=== PATIENT | female | born 1995 | race African-American/Black ===

== ENCOUNTER 2024-08-03 00:52 | Day surgery (SDC) | payer MEDICAID, SELFPAY ==
[2024-07-29 13:20] VITALS: BMI 43.4
--- NOTE | 2024-07-29 13:21 | PC.NURSE ---
Report to the Outpatient Waiting Room, entrance under the green pavilion located off [facility], at time _0600_ on date _[id number]_. Planned Procedure Time: _0730_.? Time changes happen often and if your time is changed the preop area will call you the afternoon before. - You and your visitor will be asked to self-screen and do not enter if you have any COVID symptoms. Please call surgeon if you need to reschedule. - A mask is optional within the hospital at this time. Patients may have clear liquids (water, carbonated beverages, clear teas, apple juice) until 3 hours prior to surgery with a maximum of 20 ounces. - No food from midnight until time of surgery and no smoking Take only the following medications with a SIP of water on the morning of surgery: __None DO NOT STOP ANY OF YOUR OTHER PRESCRIPTION MEDICATIONS PRIOR TO SURGERY EXCEPT THE FOLLOWING Medications to discontinue per physician __None Date to take last dose Please no make-up, nail mauritanian, hairspray, perfume, deodorant, or body powder the day of surgery.? No jewelry (including any body piercings) or valuables the day of surgery, leave them at home.? Please take a shower or bath the night before, or the morning of, surgery with an antibacterial soap.? Wear comfortable, loose fitting clothing.? - Jewelry must be removed prior to entering the operating room.? Rings and piercings that are not removed may be cut off. - The hospital will not accept responsibility for valuables.? - Please leave all valuables, including medications, at home the day of surgery. If you are going home after surgery, a licensed tractor driver teamster must drive you home.? - NO public transportation without another adult if you receive anesthesia. - We recommend that an adult stay with you for 24 hours following discharge. - We also recommend that you do not drive, make important decision, drink alcoholic beverages, or take any drugs that were not prescribed by your health care provider for at least 24 hours after your discharge time. Follow any additional instructions given to you from your surgeon. Telephone instructions given to __Lauren__and asked if any additional questions and then verbalized understanding. Patient advised to call surgeon office or pre surgery nurse liaison [phone] if any additional questions.
--- NOTE | 2024-08-02 15:49 | WPDANESEPP ---
Anes - Eval Pre Procedure Procedure: Operation Date: 08/03/24 07:30 Proposed Procedures p Suction Dilation and Curettage - Figueroa Ramos MD Date/Time: 08/02/24 15:49 Pre Op Diagnosis: Missed AB Patient Data Age: 29 Gender: F Height: 1.73 m Weight: 129.5 kg Allergies Allergy/AdvReac Type Severity Reaction Status Date / Time codeine Allergy Intermediate Unknown Verified 07/29/24 13:14 Penicillins Allergy Intermediate Hives Verified 07/29/24 13:14 Home Medications Medication Instructions Recorded Confirmed Type No Home Medications 07/29/24 07/29/24 History Patient hx anesthesia problems: none Family hx anesthesia problems: none Results Review: All pre-operative results and documents have been reviewed as part of the pre-operative evaluation. [facility] Past Medical History Medical History Depression no meds Encounter for screening examination for sexually transmitted disease Surgical History Surgical History Delivery by section (01/16/17) primary c/s hip issues History of orthopedic surgery (~03/2013) right hipo shattered screws in place Family History Family History Grandparent Diabetes mellitus maternal grandmother Acute myocardial infarction paternal grandfather Other Heart disease Social History Social History Years smoked: 4 Smoking status: Never smoker Tobacco type: e-cigarettes/vaping Smoking end date: 08/07/22 Alcohol intake: current Alcohol use details: social 4 month Substance use: current Substance use type: marijuana Other substance usage details: social 3 times a month? 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
[2024-08-03] MEDS: ACETAMINOPHEN 500 MG TABLET 1000 MG PO (06:22)
[2024-08-03] MEDS: LACTATED RINGERS 1,000 ML 30 ML IV CONT (06:25)
[2024-08-03] MEDS: DOXYCYCLINE 100 MG/NS 100 ML 100 MG/100 ML BAG IVPB (06:34)
[2024-08-03 06:35] VITALS: BP 132/83; PULSE 92; RESP 16; TEMP 36.1; O2SAT 100
[2024-08-03 07:13] LABS: Hematocrit 36.6 % (37.0-47.0); Hemoglobin 11.8 g/dL (12.0-15.0)
--- NOTE | 2024-08-03 07:15 | WPDANESEPPF ---
Anes - Initial Pre Proc Eval Procedure: Operation Date: 08/03/24 07:30 Proposed Procedures p Suction Dilation and Curettage - Figueroa Ramos MD Date/Time: 08/03/24 07:15 Surgeon: Figueroa Ramos MD Pre Op Diagnosis: Missed AB Patient Data Age: 29 Gender: F Height: 1.73 m Weight: 129 kg Last Vital Signs Temp 36.1 C L 08/03/24 06:35 Pulse 92 08/03/24 06:35 Resp 16 08/03/24 06:35 BP 132/83 08/03/24 06:35 Pulse Ox 100 08/03/24 06:35 O2 Del Method Room Air 08/03/24 06:35 Allergies Allergy/AdvReac Type Severity Reaction Status Date / Time codeine Allergy Intermediate Unknown Verified 07/29/24 13:14 Penicillins Allergy Intermediate Hives Verified 07/29/24 13:14 Home Medications Medication Instructions Recorded Confirmed Type No Home Medications 07/29/24 07/29/24 History Laboratory Tests 08/03/24 06:19 Hgb Pending Hct Pending Blood Type Pending Antibody Screen Pending Screen Pending Baby's Blood Type Pending Baby's ANIBAL Pending Doses of RhIg Required Pending Patient hx anesthesia problems: none Family hx anesthesia problems: none Results Review: All pre-operative results and documents have been reviewed as part of the pre-operative evaluation. [facility] Past Medical History Medical History Depression no meds Encounter for screening examination for sexually transmitted disease Surgical History Surgical History Delivery by section (01/16/17) primary c/s hip issues History of orthopedic surgery (~03/2013) right hipo shattered screws in place Family History Family History Grandparent Diabetes mellitus maternal grandmother Acute myocardial infarction paternal grandfather Other Heart disease Social History Social History Years smoked: 4 Smoking status: Never smoker Tobacco type: e-cigarettes/vaping Smoking end date: 08/07/22 Alcohol intake: current Alcohol use details: social 4 month Substance use: current Substance use type: marijuana Other substance usage details: social 3 times a month? 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 Gender identity (if verbalized by the patient): Female Sexual Orientation (if Verbalized by the Patient): Straight or Heterosexual Spiritual care concerns: No Anes - Eval Final PreProcedure Day of Procedure 08/03/24 07:15 Patient weight: morbidly obese Heart: regular rate and rhythm Lungs: clear to auscultation Airway: Mallampati scale class II Neurological: alert and oriented Last oral intake: >/= 8 hours ASA classification: III Emergent: no Anesthetic plan: proceed Anesthesia type and monitoring: general GIVS and standard monitoring Results Review: All pre-operative results and documents have been reviewed as part of the pre-operative evaluation. Informed Consent: The patient's anesthetic plan and its attendant risks and benefits were discussed with the patient/family/POA. Questions were solicited and answers provided to the satisfaction of the patient/family/POA.
--- NOTE | 2024-08-03 07:39 | PM.IMHP ---
H&P: HPI History of Present Illness Date/Time: 08/03/24 07:39 Chief Complaint: missed Narrative: 29-year-old female who presents for suction D&C for missed A/ B. Patient was diagnosed with spontaneous missed on dating/ viability ultrasound last week. Patient denies any pain, cramping, bleeding. Review of Systems Cardiovascular: Cardiovascular: Denies chest pain, Denies leg edema, Denies palpitations, Denies dyspnea and Denies dyspnea on exertion Respiratory: Respiratory: Denies cough, Denies dyspnea and Denies dyspnea on exertion Gastrointestinal: Gastrointestinal: Denies abdominal pain, Denies constipation, Denies diarrhea, Denies nausea and Denies vomiting Genitourinary: Genitourinary: Denies hematuria, Denies urinary frequency, Denies dysuria, Denies pelvic pain, Denies urinary incontinence and Denies vaginal discharge Neurologic: Reports system reviewed and no additional complaints, except as documented Psychiatric: Psychiatric: Reports no additional psychiatric complaints Endocrine: Endocrine: Denies palpitations PMFSH Past Medical History Medical History Depression no meds Encounter for screening examination for sexually transmitted disease Surgical History Surgical History Delivery by section (01/16/17) primary c/s hip issues History of orthopedic surgery (~03/2013) right hipo shattered screws in place Family History Family History Grandparent Diabetes mellitus maternal grandmother Acute myocardial infarction paternal grandfather Other Heart disease Social History Social History Years smoked: 4 Smoking status: Never smoker Tobacco type: e-cigarettes/vaping Smoking end date: 08/07/22 Alcohol intake: current Alcohol use details: social 4 month Substance use: current Substance use type: marijuana Other substance usage details: social 3 times a month? 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 Gender identity (if verbalized by the patient): Female Sexual Orientation (if Verbalized by the Patient): Straight or Heterosexual Spiritual care concerns: No Meds Home Medications and Allergies Home Medications Medication Instructions Recorded Confirmed Type No Home Medications 07/29/24 07/29/24 History Allergies Allergy/AdvReac Type Severity Reaction Status Date / Time codeine Allergy Intermediate Unknown Verified 07/29/24 13:14 Penicillins Allergy Intermediate Hives Verified 07/29/24 13:14 Vital Signs Vital Signs - 24 hr 08/03/24 06:35 Temperature 97 F L Pulse Rate 92 Respiratory Rate 16 Blood Pressure 132/83 Pulse Oximetry 100 Oxygen Delivery Room Air Exam Const: General: no acute distress Eyes: EOM: EOMs intact bilaterally Neck: Neck: supple Thyroid: thyroid normal Chest: Breast/axilla inspection: normal inspection of the breasts Breast/axilla palpation: normal palpation of the breasts, normal palpation of the axillae and no axillary lymphadenopathy Resp: Effort & Inspection: normal respiratory effort Auscultation: clear to auscultation bilaterally Cardio: Rate: regular rate Rhythm: regular rhythm GI: Inspection: non-distended GI Palp: Yes Soft to palpation, No Tenderness to palpation present (GI) and No Guarding due to palpation present (GI) Auscultation: normal bowel sounds : General: No bladder normal to palpation External Female Exam: normal external appearance Speculum Exam - Vagina: normal vaginal discharge and No vaginal bleeding Speculum Exam - Cervix: nontender Bimanual exam- vagina & uterus: No bladder normal to palpation and No Cervical tenderness present OB/external & speculum: No vaginal bleeding Skin: General skin exam: normal color and no rashes or lesions noted Neuro: Cognition (Neuro): normal cognition Speech: normal speech Extrem: General: normal to inspection and no edema Psych: Mental Status: mental status grossly normal Affect: normal affect H&P: Results Labs Labs: Short CBC 08/03/24 Range/Units 06:19 Hgb 11.8 L (12.0-15.0) g/dL Hct 36.6 L (37.0-47.0) % Assessment and Plan Assessment and plan (1) Missed : Code(s): O02.1 - Missed Status: Acute Assessment and Plan: 29-year-old female who presents for follow-up regarding spontaneous missed Patient was diagnosed with missed on ultrasound last week Patient was counseled on expectant versus medical versus surgical management Patient has not had any bleeding pelvic pain Patient requested repeat ultrasound to confirm diagnosis Repeat ultrasound in office today confirmed diagnosis of spontaneous missed Patient would like to proceed with surgical management via D&C Risks and benefits discussed Will plan for suction D&C in the operating room
--- NOTE | 2024-08-03 07:41 | WPDHPUPDATE1 ---
History and Physical Update Update Date/Time: 08/03/24 07:41 History and Physical has been reviewed, including an updated exam of the patient. There are NO changes in the patient's condition. Risks, benefits, and alternatives have been discussed and questions answered. Patient agrees to proceed with procedure.
[2024-08-03] MEDS: LIDOCAINE HCL 1% LOCAL INJ 20 ML VIAL 7 ML INFILTRATE (07:54)
--- NOTE | 2024-08-03 08:03 | W.PM.PROC2 ---
Procedure Note - Detailed Date of Procedure 08/03/24 Pre-op Diagnosis Missed AB Post-op Diagnosis Same Procedure Performed Suction Dilation & curettage Surgeon Figueroa Ramos MD Anesthesia General Indications spontaneous missed on pelvic US Findings intrauterine products of conception Description of Procedure The patient was taken to the operating room after a missed had been noted on on transvaginal ultrasound. The risks, benefits and alternatives of the procedure were reviewed with the patient and informed consent was obtained. The patient was taken to the OR and anesthesia was noted to be adequate. The patient was placed in the dorsolithotomy position. Pelvic exam was performed with findings noted above. The patient was prepped and draped in the usual sterile fashion. Sterile speculum was placed in the vagina and the cervix was grasped with a tenaculum. The cervix was dilated further to allow for passage of a 8 mm suction curette. The 8 mm suction curette was gently advanced to the fundus, suction was activated, and the tip was rotated while being withdrawn to clear the uterus of products. This suction process was repeated 3 additional times due to the quantity of material in the uterus. The sharp curette was introduced and advanced to the fundus to remove any remaining products. The suction curette was reintroduced one final time to ensure all products had been removed. The entire procedure was performed under direct bedside US visualization. The tenaculum was removed. Good hemostasis was noted. Instrument, sponge, and sharp counts were correct. Patient tolerated the procedure well and was taken to the recovery room in stable condition. Estimated Blood Loss 10 Drains No Packing No Pathology Yes (products of conception) Complications No immediate complications Condition Stable Disposition PACU [facility] Billing Surgery - Charge Forward: Surgery Billing
[2024-08-03 08:08] VITALS: BP 122/80; PULSE 88; RESP 18; O2SAT 100
[2024-08-03 08:38] VITALS: BP 104/73; PULSE 74
[2024-08-03 09:00] VITALS: BP 103/73; PULSE 70; RESP 18
== END 2024-08-03 09:00 | disposition home or self-care (01) ==
PROVIDERS: Visit Provider Student in an Organized Health Care Education/Training Program
PROC: (CPT 59820; principal; 2024-08-03 07:30)
DX: O02.1 Missed abortion (principal); F32.A Depression, unspecified; F12.90 Cannabis use, unspecified, uncomplicated; Z98.890 Other specified postprocedural states; Z87.891 Personal history of nicotine dependence; Z82.49 Family history of ischemic heart disease and other diseases of the circulatory system
CPT/HCPCS: 59820; 36415; 85014; 85018; 85461; 86850; 86900; 86901; 88305; A9270; J2003; J2250; J2704; J3010; J7120

== ENCOUNTER 2024-09-08 16:11 | Outpatient (CLI) | payer MEDICAID, SELFPAY ==
[2024-09-08 16:57] LABS: Beta HCG Quantitative < 2.39 mIU/ML
== END 2024-09-08 16:12 | disposition home or self-care (01) ==
LOC: ANHLAB 16:13
PROVIDERS: Visit Provider Student in an Organized Health Care Education/Training Program
DX: Z30.49 Encounter for surveillance of other contraceptives (principal)
CPT/HCPCS: 36415; 84702